=== PATIENT | female | born 1965 | race Caucasian/White ===

== ENCOUNTER 2024-03-05 09:56 | Emergency (ER) | payer OTHER ==
--- NOTE | 2024-03-05 11:03 | EDPHYS ---
Physician Documentation [facility] Name: Samia Hernandes Age: 58 yrs Sex: Female : 1965 Arrival Date: 03/05/2024 Time: 09:56 Bed DX4 Private MD: ED Physician Kaden Goel HPI: 03/05 10:28 This 58 yrs old Female presents to ER via Ambulatory with complaints of Took ec2 To Much Of her Prescription. 10:28 Patient arrives today due to concern for supratherapeutic ingestion of her Wellbutrin. ec2 States that she accidentally took double dose of Wellbutrin this morning. No symptoms, ingestion occurred approximately 2 hours prior to arrival. No vomiting, no diarrhea. No tremulousness. No seizures. States that she vomited some of the food and capsule up. Patient takes 450 mg of Wellbutrin daily and has been on this for "many years ".. Historical: - Allergies: 10:11 erythromycin; tm6 - PMHx: 10:11 Depressive disorder; Asthma; tm6 - PSHx: 10:11 None; tm6 - Immunization history:: Client reports receiving the 2nd dose of the Covid vaccine. - Infectious Disease History:: Denies. - Social history:: Smoking status: Patient denies any tobacco usage or history of. Patient/guardian denies using alcohol. ROS: 10:28 Constitutional: as per hpi ec2 Exam: 10:28 Constitutional: GEN: NAD Head: atraumatic Eyes: EOMI Ears: External ears are ec2 normal. CV: regular rate LUNGS: no respiratory distress ABD: non-distended SKIN: no evidence of rashes MSK: no evidence of trauma. Neurologic: Moves all extremities equally, ambulatory, no focal deficits, no tremulousness Vital Signs: 10:09 BP 138 / 94; Pulse 97; Resp 18; Temp 98(O); Pulse Ox 98% on R/A; MAP 107 mmHg; Weight tm6 64.41 kg; Height 5 ft. 5 in. ; Pain 0/10; 11:14 BP 124 / 86; Pulse 80; Resp 18; Temp 98; Pulse Ox 97% on R/A; Pain 0/10; tm6 10:09 Body Mass Index 23.63 (64.41 kg, 165.1 cm) tm6 10:09 Pain Scale: Adult tm6 11:14 Pain Scale: Adult tm6 MDM: 10:28 Data reviewed: vital signs. ED course: Patient arrives today for evaluation of ec2 supratherapeutic ingestion of her Wellbutrin. Examination remarkable for well-appearing nontoxic dividual's otherwise in no acute distress with a reassuring examination. Will obtain EKG to evaluate for conduction abnormalities. . 10:54 ED course: EKG independently reviewed and interpreted by me, shows normal sinus rhythm, ec2 rate of 83, no acute ST segment elevations, intervals are nonactionable. No evidence of QTc prolongation, no evidence of arrhythmia. . 11:02 Patient medically screened. ec2 03/05 10:20 Order name: EKG - Nurse/Tech; Complete Time: 10:47 ec2 Administered Medications: No medications were administered Disposition Summary: 03/05/24 11:02 Discharge Ordered Notes: Location: Home ec2 Condition: Stable ec2 Diagnosis - Supratherapeutic Inestion, accidental ec2 Followup: ec2 - With: Private Physician - When: - Reason: Re-evaluation by your physician Discharge Instructions: - Discharge Summary Sheet ec2 - Serotonin Syndrome ec2 Forms: - Medication Reconciliation Form ec2 - Antibiotic Education ec2 - Prescription Opioid Use ec2 - Patient Portal Instructions ec2 - Leadership Thank You Letter ec2 Signatures: Kaden Goel MD MD ec2 Andre Rand RN RN tm6 Corrections: (The following items were deleted from the chart) 10:31 10:28 Patient arrives today due to concern for supratherapeutic ingestion of her ec2 Wellbutrin. States that she accidentally took double dose of Wellbutrin this morning. No symptoms, ingestion occurred approximately 2 hours prior to arrival. No vomiting, no diarrhea. No tremulousness. No seizures. States that she vomited some of the food and capsule up. ec2
--- NOTE | 2024-03-05 11:03 | ER ---
Nurse's Notes [facility] Name: Samia Hernandes Age: 58 yrs Sex: Female : 1965 Arrival Date: 03/05/2024 Time: 09:56 Bed DX4 Private MD: Diagnosis: Supratherapeutic Inestion, accidental Presentation: 03/05 10:10 Chief complaint: Patient states: this morning, accidentally took an extra dose of tm6 wellbutrin, extended release. Made self throw up. Called poison control. Coronavirus screen: Client denies travel out of the [place] in the last 14 days. Ebola Screen: Patient negative for fever greater than or equal to 101.5 degrees Fahrenheit, and additional compatible Ebola Virus Disease symptoms Patient denies exposure to infectious person. Patient denies travel to an Ebola-affected area in the 21 days before illness onset. No symptoms or risks identified at this time. Initial Sepsis Screen: Does the patient meet any 2 criteria? No. Patient's initial sepsis screen is negative. Does the patient have a suspected source of infection? No. Patient's initial sepsis screen is negative. Risk Assessment: Do you want to hurt yourself or someone else? Patient reports no desire to harm self or others. Onset of symptoms was March 05, 2024. 10:10 Method Of Arrival: Ambulatory tm6 10:10 Acuity: GERTRUDIS 4 tm6 Triage Assessment: 10:11 General: Appears in no apparent distress. Behavior is calm, cooperative. Pain: Denies tm6 pain. EENT: No signs and/or symptoms were reported regarding the EENT system. Neuro: Level of Consciousness is awake, alert, obeys commands, Oriented to person, place, time, situation. Cardiovascular: Patient's skin is warm and dry. Respiratory: Airway is patent Respiratory effort is even, unlabored, Respiratory pattern is regular, symmetrical. GI: No signs and/or symptoms were reported involving the gastrointestinal system. Abdomen is flat, non-distended. : No signs and/or symptoms were reported regarding the genitourinary system. Derm: No signs and/or symptoms reported regarding the dermatologic system. Musculoskeletal: No signs and/or symptoms reported regarding the musculoskeletal system. Historical: - Allergies: 10:11 erythromycin; tm6 - PMHx: 10:11 Depressive disorder; Asthma; tm6 - PSHx: 10:11 None; tm6 - Immunization history:: Client reports receiving the 2nd dose of the Covid vaccine. - Infectious Disease History:: Denies. - Social history:: Smoking status: Patient denies any tobacco usage or history of. Patient/guardian denies using alcohol. Screenin:13 [facility] ED Fall Risk Assessment (Adult) History of falling in the last 3 months, tm6 including since admission No falls in past 3 months (0 pts) Confusion or Disorientation No (0 pts) Intoxicated or Sedated No (0 pts) Impaired Gait No (0 pts) Mobility Assist Device Used No (0 pt) Altered Elimination No (0 pt) Score/Fall Risk Level 0 - 2 = Low Risk Oriented to surroundings, Maintained a safe environment, Educated pt \T\ family on fall prevention, incl call for assistance when getting out of bed. Abuse screen: Denies threats or abuse. Denies injuries from another. Nutritional screening: No deficits noted. Tuberculosis screening: No symptoms or risk factors identified. Assessment: 11:13 Reassessment: see triage assessment. tm6 Vital Signs: 10:09 BP 138 / 94; Pulse 97; Resp 18; Temp 98(O); Pulse Ox 98% on R/A; MAP 107 mmHg; Weight tm6 64.41 kg; Height 5 ft. 5 in. ; Pain 0/10; 11:14 BP 124 / 86; Pulse 80; Resp 18; Temp 98; Pulse Ox 97% on R/A; Pain 0/10; tm6 10:09 Body Mass Index 23.63 (64.41 kg, 165.1 cm) tm6 10:09 Pain Scale: Adult tm6 11:14 Pain Scale: Adult tm6 ED Course: 10:04 Patient arrived in ED. mg5 10:04 Kaden Goel MD is Attending Physician. ec2 10:11 Triage completed. tm6 10:11 Arm band placed on left wrist. tm6 10:47 EKG done, by ED staff, reviewed by Kaden Goel MD. em1 11:13 Patient has correct armband on for positive identification. Provided Education on: tm6 follow up with pcp/psych. 11:13 No provider procedures requiring assistance completed. Patient did not have IV access tm6 during this emergency room visit. Administered Medications: No medications were administered Medication: 11:13 VIS not applicable for this client. tm6 Outcome: 11:02 Discharge ordered by . ec2 11:13 Discharged to home ambulatory, with family, tm6 11:13 Condition: stable 11:13 Discharge instructions given to patient, family, Instructed on discharge instructions, follow up and referral plans. Demonstrated understanding of instructions, follow-up care, 11:14 Patient left the ED. tm6 Signatures: Bolivar Reynoso em1 Katelyn Leon mg5 Kaden Goel MD MD ec2 Andre Rand, DILLON RN tm6
[2024-03-05 11:24] VITALS: TEMP 98
[2024-03-05 11:26] VITALS: BP 124/86; O2SAT 97
--- NOTE | 2024-03-11 12:18 | EKG ---
Test Date: 2024-03-05 Test Time: 10:43:23 [employer] Project Manager: MANDA MEASUREMENT RESULTS: Intervals: Rate: 83 IA: 158 QRSD: 86 QT: 378 QTc: 444 [place]: P: 49 IA: 158 QRS: 48 T: 75 INTERPRETIVE STATEMENTS: Normal sinus rhythm Low voltage QRS Borderline ECG No previous ECG available for comparison Electronically Signed On 03-11-24 12:01:47 CDT by Shiv Judd
== END 2024-03-05 11:14 | disposition home or self-care (01) ==
LOC: ER 09:56
DX: R11.10 Vomiting, unspecified (principal); T43.295A Adverse effect of other antidepressants, initial encounter; F32.A Depression, unspecified
CPT/HCPCS: 93005; 99283

== ENCOUNTER 2024-07-18 16:25 | Emergency (ER) | payer OTHER ==
--- NOTE | 2024-07-18 17:58 | RAD REPORT ---
EXAMINATION: Stone Protocol CLINICAL INDICATION: Abdominal pain. Hematuria TECHNIQUE: CT abdomen and pelvis was performed, without IV contrast, as per department protocol. Oral contrast not given. Axial, sagittal and coronal reconstructions were obtained. One or more of the following dose reduction techniques were used: Automated exposure control, adjustment of the mA and k V according to the patient size, and iterative reconstruction. Unless otherwise specified, incidental findings do not require dedicated imaging follow-up. COMPARISON: No prior exam. FINDINGS: The lack of intravenous and oral contrast limits the sensitivity of this exam for evaluation of solid visceral organs, vascular structures, and bowel Tiny calculus left kidney. No hydronephrosis. Right renal calculus not seen. A ureteral calculus is n ot visualized. No bladder calculus. 7.1 cm low to intermediate density mass right lobe liver. The spleen, pancreas and adrenals grossly normal. No evidence of diverticulitis.. No adnexal mass. Moderate amount stool within the transverse and right colon. IMPRESSION: Tiny nonobstructing left calculus. Moderate amount stool within the transverse and right colon. 7.1 cm low to intermediate density hepatic mass. Further evaluation with ultrasound recommended
[2024-07-18] MEDS ORDERED: ONDANSETRON 4 MG/2 ML VIAL ONE (18:27)
[2024-07-18] MEDS ORDERED: NA CHLORIDE 0.9% 1,000 ML ONE (18:27)
[2024-07-18 18:40] LABS: Absolute Eosinophils 0.1 K/uL (0-0.5); Absolute Lymphocytes (CBC) 1.5 K/uL (0.7-4.9); Absolute Monocytes 0.6 K/uL (0.1-1.3); Absolute Neutrophil 4.4 K/uL (1.8-8.0); Basophils % 0.4 % (0-1.3); Eosinophils % 1.9 % (0-4.4); Hematocrit 40.1 % (36.0-45.0); Hemoglobin 13.1 g/dL (12.0-15.0); Lymphocytes % 22.4 % (15.3-44.8); MCHC 32.8 g/dL (32.0-36.0); MCV 82.3 fL (80-100); MPV 7.3 fL (7.6-11.3); Monocytes % 8.7 % (3.3-12.3); Neutrophils % 66.6 % (41.7-73.7); Nucleated Red Blood Cells % 0.1 % (0-0); Platelets 256 thou/uL (152-406); RBC Red Blood Cell Count 4.87 M/uL (3.86-4.86); Red Cell Distribution Width 13.8 % (12.1-15.2)
[2024-07-18 19:16] LABS: Albumin 3.5 g/dL (3.4-5.0); Albumin/Globulin Ratio 0.9 (1.1-1.8); Anion Gap 10.1 mEq/L (5.0-15.0); Bilirubin Total 0.3 mg/dL (0.2-1.0); Globulin 3.8 g/dL (2.3-3.5); Potassium 4.1 mEq/L (3.5-5.1); Protein, Total 7.3 g/dL (6.4-8.2)
[2024-07-18] MEDS ORDERED: CEFTRIAXONE 1000 MG/VIAL ONE (20:54)
[2024-07-18 21:47] LABS: Specific Gravity 1.007 (1.005-1.030); Urine Bilirubin NEGATIVE (Negative); Urine Blood Negative (Negative); Urine Clarity Clear (Clear); Urine Color Colorless (Yellow); Urine Glucose NEGATIVE (Negative); Urine Ketones NEGATIVE (Negative); Urine Microscopic Reflex YN NO UMIC; Urine Nitrite NEGATIVE (Negative); Urine Protein NEGATIVE (Negative); Urine Urobilinogen Normal (Normal); Urine pH 6.5 (5.0-7.0)
--- NOTE | 2024-07-18 22:07 | ER ---
Nurse's Notes [facility] Name: Samia Hernandes Age: 58 yrs Sex: Female : 1965 Arrival Date: 07/18/2024 Time: 16:25 Bed 10 Private MD: Diagnosis: UTI/ Urinary tract infection, site not specified Presentation: 07/18 16:36 Chief complaint: Patient states: was diagnosed with uti on Friday, has been on antibiotics, waiting on culture to come back , is having blood in urine. Coronavirus screen: At this time, the client does not indicate any symptoms associated with coronavirus-19. Ebola Screen: No symptoms or risks identified at this time. Initial Sepsis Screen: Does the patient meet any 2 criteria? HR > 90 bpm. Does the patient have a suspected source of infection?. Risk Assessment: Do you want to hurt yourself or someone else? Patient reports no desire to harm self or others. Onset of symptoms was July 14, 2024. 16:36 Method Of Arrival: Ambulatory iw 16:36 Acuity: GERTRUDIS 3 iw Historical: - Allergies: 16:38 Erythromycin; iw - PMHx: 16:38 Asthma; depressive disorder; iw Screenin:23 [facility] ED Fall Risk Assessment (Adult) History of falling in the last 3 months, jb4 including since admission No falls in past 3 months (0 pts) Confusion or Disorientation No (0 pts) Intoxicated or Sedated No (0 pts) Impaired Gait No (0 pts) Mobility Assist Device Used No (0 pt) Altered Elimination No (0 pt) Score/Fall Risk Level 0 - 2 = Low Risk Oriented to surroundings, Maintained a safe environment. Abuse screen: Denies threats or abuse. Nutritional screening: No deficits noted. Tuberculosis screening: No symptoms or risk factors identified. Assessment: 17:00 General: Appears in no apparent distress. comfortable, Behavior is calm, cooperative, jb4 appropriate for age. Pain: Complains of pain in abdomen Pain does not radiate. Pain currently is 4 out of 10 on a pain scale. Neuro: Level of Consciousness is awake, alert, obeys commands, Oriented to person, place, time, situation. Cardiovascular: Patient's skin is warm and dry. Respiratory: Airway is patent Respiratory effort is even, unlabored, Respiratory pattern is regular, symmetrical. GI: Abdomen is flat, non-distended, Reports nausea, vomiting. Derm: Skin is intact, Skin is pink, warm \T\ dry. Musculoskeletal: Circulation, motion, and sensation intact. Range of motion: intact in all extremities. 19:03 Reassessment: Patient appears in no apparent distress at this time. Patient and/or jb4 family updated on plan of care and expected duration. Pain level reassessed. Patient is alert, oriented x 3, equal unlabored respirations, skin warm/dry/pink. 20:09 Reassessment: Patient appears in no apparent distress at this time. Patient and/or jb4 family updated on plan of care and expected duration. Pain level reassessed. Patient is alert, oriented x 3, equal unlabored respirations, skin warm/dry/pink. 20:48 Reassessment: Patient appears in no apparent distress at this time. Patient and/or jb4 family updated on plan of care and expected duration. Pain level reassessed. Patient is alert, oriented x 3, equal unlabored respirations, skin warm/dry/pink. Vital Signs: 16:36 BP 126 / 97; Pulse 92; Resp 16; Temp 97.3; Pulse Ox 98% on R/A; iw 19:04 BP 135 / 86; Pulse 84; Resp 16; Pulse Ox 99% on R/A; jb4 20:09 BP 143 / 84; Pulse 79; Resp 16; Pulse Ox 99% on R/A; jb4 ED Course: 16:28 Patient arrived in ED. mr 16:33 Danielle Pham FNP-C is PHCP. kb 16:33 Tahir Reyez MD is Attending Physician. kb 16:38 Triage completed. iw 16:57 Arm band placed on. iw 17:13 CT Stone Protocol In Process Unspecified. EDMS 17:46 PHCP role handed off by Danielle Pham FNP-C sb4 17:46 Sheela Irvin PA-C is PHCP. sb4 18:24 CBC with Diff Sent. jb4 18:24 CMP Sent. jb4 20:48 Garett Boland, RN is Primary Nurse. jb4 22:23 Patient has correct armband on for positive identification. Bed in low position. Call jb4 light in reach. Side rails up X 1. Provided Education on: discharge instructions.. 22:23 No provider procedures requiring assistance completed. IV discontinued, intact, jb4 bleeding controlled, No redness/swelling at site. Pressure dressing applied. Administered Medications: 18:32 Drug: Ondansetron IVP 4 mg IVP once; over 2 minutes Route: IVP; Site: right antecubital;jb4 22:25 Follow up: Response: No adverse reaction; Marked relief of symptoms jb4 18:32 Drug: NS 0.9% IV 1000 ml IV at 1 bolus Per protocol; to be given as a bolus over 60 jb4 minutes Route: IV; Rate: 1 bolus; Site: right antecubital; 19:30 Follow up: IV Status: Completed infusion; IV Intake: 1000ml jb4 21:02 Drug: Rocephin IV 1 grams IV at calculated rate once; Given slow IV push per pharmacy jb4 instructions Route: IV; Rate: calculated rate; Site: right antecubital; 21:05 Follow up: Response: No adverse reaction; IV Status: Completed infusion jb4 Medication: 22:23 VIS not applicable for this client. jb4 Intake: 19:30 IV: 1000ml; Total: 1000ml. jb4 Outcome: 22:07 Discharge ordered by . sb4 22:23 Discharged to home ambulatory, jb4 22:23 Condition: stable 22:23 Discharge instructions given to patient, Instructed on discharge instructions, follow up and referral plans. Demonstrated understanding of instructions, follow-up care, 22:25 Patient left the ED. jb4 Signatures: Dispatcher [employer] EDWI Danielle Pham, BRADEN-C BLOCK BREAKER-Macarena Bauman, Reg Reg mr Sandy Bauer RN RN iw Bryson, James, RN RN jb4 Brown, Sophia, PA-C PA-C sb4
--- NOTE | 2024-07-18 22:07 | EDPHYS ---
Physician Documentation [facility] Name: Samia Hernandes Age: 58 yrs Sex: Female : 1965 Arrival Date: 07/18/2024 Time: 16:25 Bed 10 Private MD: SRI Physician Tahir Reyez HPI: 07/18 16:40 This 58 yrs old Female presents to ER via Ambulatory with complaints of Urinary kb Problem, Vomiting. 16:40 Pt is a 58 year old female who presents for continuing of UTI symptoms. States she had kb hematuria, dysuria, and frequency that started 5 days ago, was diagnosed with UTI by Dr Champion 4 days ago and started on bactrim. Symptoms have improved, but she had nausea today with one episode of vomiting. Denies fever. Historical: - Allergies: 16:38 Erythromycin; iw - PMHx: 16:38 Asthma; depressive disorder; iw ROS: 16:39 Constitutional: As per HPI kb Exam: 16:39 Constitutional: This is a well developed, well nourished patient who is awake, alert, kb and in no acute distress. Head/Face: Normocephalic, atraumatic. ENT: Moist Mucous membranes Cardiovascular: Regular rate Respiratory: Respirations even and unlabored. No increased work of breathing. Talking in full sentences Abdomen/GI: Soft, non-tender. No distention Back: No spinal tenderness. No costovertebral tenderness. Full range of motion. Skin: Warm, dry with normal turgor. Normal color. MS/ Extremity: Pulses equal, no cyanosis. Neurovascular intact. Full, normal range of motion. Neuro: Awake and alert, GCS 15, oriented to person, place, time, and situation. Vital Signs: 16:36 BP 126 / 97; Pulse 92; Resp 16; Temp 97.3; Pulse Ox 98% on R/A; iw 19:04 BP 135 / 86; Pulse 84; Resp 16; Pulse Ox 99% on R/A; jb4 20:09 BP 143 / 84; Pulse 79; Resp 16; Pulse Ox 99% on R/A; jb4 MDM: 16:33 Medical Screening Exam initiated kb 16:40 Differential diagnosis: uti, pyelonephritis, kidney stone. Data reviewed: vital signs, kb nurses notes. Historians other than the Patient: Spouse/Significant Other: . 17:39 Transition of care: After a detail discussion of the patient's case, care is kb transferred to Sheela Irvin PA-C. 07/18 16:43 Order name: CBC with Diff; Complete Time: 18:46 kb 07/18 16:43 Order name: CMP; Complete Time: 19:17 kb 07/18 16:43 Order name: Urinalysis w/ reflexes; Complete Time: 21:57 kb 07/18 16:43 Order name: CT Stone Protocol; Complete Time: 17:59 kb 07/18 16:43 Order name: IV Saline Lock; Complete Time: 18:24 kb 07/18 16:43 Order name: Labs collected and sent; Complete Time: 18:24 kb Administered Medications: 18:32 Drug: Ondansetron IVP 4 mg IVP once; over 2 minutes Route: IVP; Site: right antecubital;jb4 22:25 Follow up: Response: No adverse reaction; Marked relief of symptoms jb4 18:32 Drug: NS 0.9% IV 1000 ml IV at 1 bolus Per protocol; to be given as a bolus over 60 jb4 minutes Route: IV; Rate: 1 bolus; Site: right antecubital; 19:30 Follow up: IV Status: Completed infusion; IV Intake: 1000ml jb4 21:02 Drug: Rocephin IV 1 grams IV at calculated rate once; Given slow IV push per pharmacy jb4 instructions Route: IV; Rate: calculated rate; Site: right antecubital; 21:05 Follow up: Response: No adverse reaction; IV Status: Completed infusion jb4 Disposition: 07/19 12:37 Co-signature as Attending Physician, Tahir Reyez MD I agree with the assessment and gordon plan of care. Disposition Summary: 07/18/24 22:07 Discharge Ordered Notes: Location: Home sb4 Problem: new sb4 Symptoms: have improved sb4 Condition: Stable sb4 Diagnosis - UTI/ Urinary tract infection, site not specified sb4 Followup: sb4 - With: Private Physician - When: 2 - 3 days - Reason: Recheck today's complaints, Re-evaluation by your physician Discharge Instructions: - Discharge Summary Sheet sb4 - Urinary Tract Infection, Adult, [id number] sb4 - Hemangioma sb4 Forms: - Patient Portal Instructions sb4 - Leadership Thank You Letter sb4 Signatures: Dispatcher [employer] Danielle Becerra FNP-C CHANGE CONTROL COORDINATOR-Tahir Bird MD MD cha Williams, Irene, RN RN Garett Martínez RN RN jb4 Sheela Irvin, ANA PEREZ sb4
[2024-07-18 22:41] VITALS: TEMP 97.3
[2024-07-18 22:43] VITALS: O2SAT 99
[2024-07-18 22:45] VITALS: BP 143/84
== END 2024-07-18 22:25 | disposition home or self-care (01) ==
LOC: ER 16:25
DX: N39.0 Urinary tract infection, site not specified (principal)
CPT/HCPCS: 96361; 85025; 36415; 81003; 80053; 76377; 74176; 96375; 96374; 99284; J2405; J7030; J0696